=== PATIENT | female | born 1955 | race Caucasian/White ===

== ENCOUNTER 2023-04-16 09:39 | Observation (INO) ==
[~2023-04-16 09:39] MED LIST: Naloxone 0.4 mg VIAL 0.4 mg/ml 1 ml VIAL IV PRN; Prochlorperazine 5 mg/ml 2 ml VIAL (10 mg) IV PRN
[2023-04-16] MEDS ORDERED: ceFAZolin 2 GM PREMIX 2 GM/50 ML BAG ONE (09:56)
[2023-04-16] MEDS ORDERED: Clindamycin 900 MG/50 **NS BAG 900 MG/50 ML BAG ONE (10:57)
[2023-04-16 11:44] LABS: Rapid COVID-19 Molecular Undetected (Undetected)
[2023-04-16] MEDS ORDERED: Midazolam 2 mg/2 ml VIAL 1 mg/ml 2 ml VIAL (2 mg) ONE (12:28)
[2023-04-16] MEDS ORDERED: ROPIVACAINE 5 MG/ML 30 ML BTL (0.5%) ONE ×2 (12:29→12:54)
[2023-04-16] MEDS ORDERED: Lidocaine 2% PF 5 ML VIAL ONE (13:22)
[2023-04-16] MEDS ORDERED: fentaNYL 100 mcg/2 ml 50 MCG/ML VIAL ONE ×2 (13:22→16:44)
[2023-04-16] MEDS ORDERED: Acetaminophen IV 1 GM/100ML 1,000 MG/100 ML BAG IV ONE (14:02)
[2023-04-16] MEDS ORDERED: Ondansetron 4 mg VIAL 2 MG/ML 2 ml VIAL ONE (14:02)
[2023-04-16] MEDS ORDERED: Dexamethasone IV 4 MG/ML VIAL 1 ml VIAL ONE (14:02)
[2023-04-16] MEDS ORDERED: Ondansetron ODT 4 mg TAB 4 MG TAB PO PRN (14:24)
[2023-04-16] MEDS ORDERED: Ondansetron 4 mg VIAL 2 MG/ML 2 ml VIAL IV PRN (14:24)
[2023-04-16] MEDS ORDERED: Morphine 2 MG/ML SYRINGE IV PRN (14:24)
[2023-04-16] MEDS ORDERED: Lactulose 30 ml UDC PO PRN (14:24)
[2023-04-16] MEDS ORDERED: Magnesium Hydroxide LIQ 30 ML UDC PO PRN (14:24)
[2023-04-16] MEDS ORDERED: Propofol 10 MG/ML 20 ML BTL ONE (15:00)
[2023-04-16] MEDS: fentaNYL 100 mcg/2 ml 50 MCG/ML VIAL IV PRN (16:46)
[2023-04-16] MEDS: Lactated Ringers 1000 ml BAG 1,000 ML IV SCH ×2 (17:40→19:29)
[2023-04-16] MEDS: Buffered Lidocaine 1% SYRIN 1 ml INTRADERM ONE (19:28)
[2023-04-16] MEDS: VILAZODONE 10 MG PO SCH (19:29)
[2023-04-16] MEDS: Mometasone 220 MCG MDI INH SCH (20:58)
[2023-04-16] MEDS: Magnesium Hydroxide LIQ 30 ML UDC PO SCH (21:01)
[2023-04-16] MEDS: Clindamycin 600 MG/D5W BAG 600 MG/50 ML BAG IV SCH (23:38)
[2023-04-17] MEDS: Albuterol HFA INHALER 8 gm MDI INH PRN (06:04)
[2023-04-17 06:14] LABS: Hematocrit 30.1 % (35-45); Hemoglobin 10.7 g/dL (11.5-14.3); Mean Platelet Volume 7.7 fL (7.5-11.2); Platelet Count 147 10^3/uL (150-450)
[2023-04-17 06:36] LABS: Calcium 8.6 mg/dL (8.6-10.3); Creatinine, Serum 0.62 mg/dL (0.51-0.95); Potassium 4.3 mmol/L (3.5-5.0); eGFR CKD-EPI 96.9 (>60)
[2023-04-17] MEDS: Vitamin THERAPEUTIC TAB PO SCH (10:13)
[2023-04-17 14:32] VITALS: BP 104/81
== END 2023-04-17 16:45 | disposition home or self-care (01) ==
LOC: OR 09:39 → SSU 09:39
PROVIDERS: ADMIT Orthopaedic Surgery Adult Reconstructive Orthopaedic Surgery; ATTEND Orthopaedic Surgery Adult Reconstructive Orthopaedic Surgery